=== PATIENT | male | born 1940 | race Caucasian/White ===

== ENCOUNTER 2017-12-29 09:13 | Day surgery (SDC) | payer MEDICARE, OTHER ==
[~2017-12-29] VITALS: Ht 172.7 cm; Wt 81.8 kg
[2017-12-29 09:48] VITALS: BP 111/53
[2017-12-29] MEDS ORDERED: water pill (10:08)
[2017-12-29] MEDS ORDERED: IBUP-1985 PO (10:08)
[2017-12-29] MEDS ORDERED: HYDR-565 PO (10:09)
[2017-12-29] MEDS ORDERED: bp med (10:09)
[2017-12-29] MEDS ORDERED: stool softener (10:10)
[2017-12-29] MEDS ORDERED: fentaNYL/PF 50MCG/1 ML 2ML syringe ONE (10:22)
[2017-12-29] MEDS ORDERED: MIDAZolam 5mg/5ml vial ONE (10:22)
[2017-12-29 11:00] VITALS: BP 100/50
[2017-12-29 11:08] VITALS: BP 111/60
[2017-12-29 11:18] VITALS: BP 111/56
[2017-12-29 11:28] VITALS: BP 115/56
== END 2017-12-29 11:35 | disposition home or self-care (01) ==
LOC: GI LAB 09:13
PROVIDERS: ATTEND Internal Medicine Gastroenterology
DX: Z09 Encounter for follow-up examination after completed treatment for conditions other than malignant neoplasm (principal); D12.0 Benign neoplasm of cecum; K63.5 Polyp of colon; K57.30 Diverticulosis of large intestine without perforation or abscess without bleeding; K55.21 Angiodysplasia of colon with hemorrhage; I10 Essential (primary) hypertension; J44.9 Chronic obstructive pulmonary disease, unspecified; F15.21 Other stimulant dependence, in remission; G89.29 Other chronic pain; Z86.010 Personal history of colon polyps; Z79.891 Long term (current) use of opiate analgesic; Z79.1 Long term (current) use of non-steroidal anti-inflammatories (NSAID); Z87.891 Personal history of nicotine dependence; Z87.442 Personal history of urinary calculi; Z85.46 Personal history of malignant neoplasm of prostate; Z88.5 Allergy status to narcotic agent; Z79.899 Other long term (current) drug therapy; Z98.890 Other specified postprocedural states
CPT/HCPCS: 45380; 45382; 45385; 99153; G0500; J2250; J3010; J7030; 88305; A4620

== ENCOUNTER 2020-03-07 09:03 | Inpatient (IN) | payer MEDICARE, OTHER ==
[2020-02-29 15:46] LABS: CLARITY,URINE CLEAR (Clear); COLOR,URINE YELLOW (Yellow); GLUCOSE, URINE NEGATIVE (Neg); KETONES,URINE NEGATIVE (Neg); LEUKOCYTE ESTERASE ,URINE NEGATIVE (Neg); NITRITES, URINE NEGATIVE (Neg); OCCULT BLOOD,URINE NEGATIVE (Neg); PH,URINE 5.5 (4.8-8.0); PROTEIN,URINE NEGATIVE (Neg); UROBILINOGEN,URINE 0.2 E.U/dL (0.2-1.0)
[2020-02-29 15:47] LABS: UA COLLECTION TYPE NON-SPECIFIED
[2020-02-29 15:55] LABS: BASOPHILS # (AUTO) 0.1 X10'3 (0-0.2); BASOPHILS % (AUTO) 1.5 % (0-1); EOSINOPHILS # (AUTO) 0.3 X10'3 (0-0.9); EOSINOPHILS % (AUTO) 4.4 % (0-6); LYMPHOCYTES % (AUTO) 13.7 % (21-51); MEAN CORPUSCULAR VOLUME 94.1 FL (78-98); MEAN PLATELET VOLUME 8.4 FL (7.4-10.4); MONOCYTES # (AUTO) 0.8 X10'3 (0-0.9); MONOCYTES % (AUTO) 10.8 % (2-12); NEUTROPHILS # (AUTO) 4.9 X10'3 (1.8-7.7); NEUTROPHILS % (AUTO) 69.6 % (42-75); PRE OP HEMOGLOBIN 14.9 g/dL (14.0-17.9); PRE OP PLATELET COUNT 276 X10'3 (140-440); RED BLOOD COUNT 4.67 X10'6 (4.70-6.10); RED CELL DISTRIBUTION WIDTH 14.2 % (11.5-14.5)
[2020-02-29 16:03] LABS: ALBUMIN 4.2 G/DL (3.4-5.0); ALBUMIN/GLOBULIN RATIO 1.2 (1.1-1.5); ALKALINE PHOSPHATASE 91 IU/L (46-116); BLOOD UREA NITROGEN 15 MG/DL (7-18); BUN/CREATININE RATIO 17.6 (5.4-32.0); CALCIUM 9.6 MG/DL (8.5-10.1); CHLORIDE 104 MMOL/L (99-107); CREATININE 0.85 MG/DL (0.60-1.10); PRE OP ALT 48 U/L (30-65); PRE OP ANION GAP 6 (8-16); PRE OP AST 22 U/L (10-37); PRE OP BILIRUB, TOTAL 0.3 MG/DL (0.0-1.0); PRE OP GLUCOSE 95 MG/DL (70-104); PRE OP POTASSIUM 3.7 MMOL/L (3.4-5.1); PRE OP SODIUM 139 MMOL/L (135-145); TOTAL CARBON DIOXIDE 29.2 MMOL/L (24-32); TOTAL PROTEIN 7.7 G/DL (6.4-8.2); eGFR 87 ML/MIN
[~2020-03-07] VITALS: Ht 172.7 cm; Wt 81.8 kg
[2020-03-07] VITALS (10 sets, daily range): BP systolic 122–139; BP diastolic 51–71
[~2020-03-07 09:03] MED LIST: AMLO-708 PO; ATOR20TA66 PO; BUPIVACAINE liposomal/PF 13.3 MG/ML vial IM ONE; BUPIVAcaine/PF 2.5 mg/ml (0.25%) 30ml vial ONE; BUPIVAcaine/PF 2.5mg/ml (0.25%) 10ml vial ONE; CELE200C PO; CLON0.5T23 PO; DOCU-21 PO; HYDR-4353 PO; LIDOcaine 1% (10mg/ml) 2ml vial ONE; LISI1TAB51 PO; albuterol 2.5 MG/3 ML nebule NEB ONE; cefazolin/dext.iso 2gm/50ml 50 ML IV ONE; famotidine 20mg tablet PO ONE; ringers solution, lacted 1,000 ML IV SCH
[2020-03-07] MEDS ORDERED: ringers solution, lacted 1,000 ML IV SCH (12:36)
[2020-03-07] MEDS ORDERED: fentaNYL/PF 50MCG/1 ML 2ML syringe ONE ×3 (12:39→16:32)
[2020-03-07] MEDS ORDERED: midazolam 2 mg/2 ml injection ONE (12:39)
[2020-03-07] MEDS ORDERED: hydrALAZINE 20mg/ml inj. IV PRN (12:40)
[2020-03-07] MEDS ORDERED: propofol inj 20 ML IV ONE (12:40)
[2020-03-07] MEDS ORDERED: fentaNYL/PF 50MCG/1 ML 2ML syringe IV PRN ×2 (12:40)
[2020-03-07] MEDS ORDERED: HYDROmorphone inj. 0.5 MG/0.5 ML DISP.SYRIN IV PRN ×2 (12:40)
[2020-03-07] MEDS ORDERED: LIDOcaine 2% (20mg/ml) 5ml vial ONE (12:40)
[2020-03-07] MEDS ORDERED: rocuronium 10mg/ml inj IV ONE ×2 (12:40→14:50)
[2020-03-07] MEDS ORDERED: ondansetron/PF 4mg/2ml inj IV PRN ×2 (12:40→17:05)
[2020-03-07] MEDS ORDERED: labetalol 20mg/4ml (5mg/ml) syringe IV PRN (12:40)
[2020-03-07] MEDS ORDERED: ondansetron/PF 4mg/2ml inj ONE (12:40)
[2020-03-07] MEDS ORDERED: furosemide 40mg/4ml inj ONE (12:46)
[2020-03-07] MEDS ORDERED: sevoflurane 250ml liquid IH ONE (12:46)
[2020-03-07] MEDS ORDERED: dexamethasone sod phosphate 4mg/ml inj. ONE (13:38)
[2020-03-07] MEDS ORDERED: ePHEDrine 50MG/ML INJ. ONE (14:34)
[2020-03-07] MEDS ORDERED: albumin (Human) 5% 250ml 250 ML IV ONE (15:27)
[2020-03-07] MEDS ORDERED: BUPIVACAINE liposomal/PF 13.3 MG/ML vial IM ONE (15:41)
[2020-03-07] MEDS ORDERED: BUPIVAcaine/PF 2.5mg/ml (0.25%) 10ml vial ONE (15:41)
[2020-03-07] MEDS ORDERED: BUPIVAcaine/PF 2.5 mg/ml (0.25%) 30ml vial ONE (15:41)
[2020-03-07] MEDS ORDERED: neostigmine methylsulfate 1 MG/ML 10ml vial ONE (16:13)
[2020-03-07] MEDS ORDERED: glycopyrrolate 0.2mg/ml inj ONE (16:13)
--- NOTE | 2020-03-07 16:46 | NUR ---
Received from OR via , accompanied by Anesthesiologist DR SALGADO and report given by Anesthesiolgist. AWAKENS TO VOICE. VITALS STABLE. DRESSING DI. STATES PAIN TO LT LATERRAL CHEST. WILL MEDICATE. CHEST TUBE TO LOW SUCTION. KRISHNAN WITH CLEAR URINE.
[2020-03-07] MEDS ORDERED: morphine 4 MG/ML inj SYRINge IV PRN ×2 (17:05)
[2020-03-07] MEDS ORDERED: metoclopramide 5 mg/ml inj IV PRN (17:05)
[2020-03-07] MEDS ORDERED: albuterol 2.5 MG/3 ML nebule NEB PRN (17:05)
[2020-03-07] MEDS ORDERED: naloxone 0.4 mg/ml inj IV PRN (17:05)
[2020-03-07 17:11] LABS: ABG BASE EXCESS -3.2 mmol/L (-2.0-2.0); ABG HCO3 23.1 mmol/L (22.0-26.0); ABG PCO2 (T) 46.3 mmHg (35.0-48.0); ABG PO2 (T) 117.8 mmHg (75.0-100.0); FCOHb 0.2 % (0.0-3.9); FLOW 9 L/min; FMetHb 0.5 % (0.0-1.5); FO2Hb 97.3 % (94-97)
--- NOTE | 2020-03-07 17:36 | NUR ---
Report called to receiving nurse. Transferred via [facility]ong[facility] . Special Issues communicated to receiving nurse. AWAKE AND ORIENTED. VITALS STABLE. DRESSINGS DI. STATES PAIN IMPROVING. TO [facility] 316 AT THIS TIME.
--- NOTE | 2020-03-07 17:45 | NUR ---
received report via Sara COLEMAN ,from [facility],[employer]PERVISOR,received patient into room 316,assessment complete,oriented to surroundings,pt drowsy,responds appropriately c/o pain 7-8 with deep breaths only,chest tube to suction,scant airleak noted ,no drainage at this time, post op V/S started,o2/2l/nc. f/c patnt draining adequates amounts of clear yellow urine,call diamond in hand, side rails up
--- NOTE | 2020-03-07 18:30 | NUR ---
Patient in room MED 316. I have received report from Ariana, and had the opportunity to ask questions and assume patient care. Addendum: 03/08/20 at 0605 by Julien Ortega RN Received report from Gary, not for Ariana.
--- NOTE | 2020-03-07 18:30 | NUR ---
Problems reprioritized. Patient report given, questions answered & plan of care reviewed with KAYODE byers.
[2020-03-07] MEDS: docusate sod 100mg capsule PO SCH (19:44)
[2020-03-07] MEDS: HYDROcodone/acetaminophen 10/325mg tab PO PRN (19:46)
[2020-03-07] MEDS: potassium Cl 20mEq in D5-NS 1,000 ML IV SCH (19:46)
[2020-03-07] MEDS: gabapentin 300mg capsule PO SCH (19:46)
[2020-03-07] MEDS ORDERED: clonazePAM 0.5mg tablet PO PRN (21:00)
[2020-03-08] MEDS: ceFAZolin inj. 1,000 MG in dextrose 5%-water 50ml 50 ML IV SCH ×2 (00:03→08:00)
[2020-03-08] MEDS: HYDROcodone/acetaminophen 10/325mg tab PO PRN ×3 (00:04→14:18)
[2020-03-08 02:00] VITALS: BP 117/45
[2020-03-08 05:32] LABS: BASOPHILS % (AUTO) 0.3 % (0-1); EOSINOPHILS % (AUTO) 0 % (0-6); HEMATOCRIT 38.3 % (42.0-52.0); HEMOGLOBIN 12.7 g/dl (14.0-17.9); LYMPHOCYTES # (AUTO) 0.8 X10'3 (1.1-4.8); LYMPHOCYTES % (AUTO) 6.1 % (21-51); MEAN CORPUSCULAR HEMOGLOBIN 31.1 PG (27.0-31.0); MEAN CORPUSCULAR HGB CONC 33.1 g/dL (33.0-36.5); MEAN CORPUSCULAR VOLUME 93.9 FL (78-98); MEAN PLATELET VOLUME 8.8 FL (7.4-10.4); MONOCYTES # (AUTO) 1.2 X10'3 (0-0.9); MONOCYTES % (AUTO) 9.4 % (2-12); NEUTROPHILS # (AUTO) 10.8 X10'3 (1.8-7.7); NEUTROPHILS % (AUTO) 84.2 % (42-75); PLATELET COUNT 227 X10'3 (140-440); RED BLOOD COUNT 4.07 X10'6 (4.70-6.10); RED CELL DISTRIBUTION WIDTH 13.9 % (11.5-14.5); WHITE BLOOD COUNT 12.9 X10'3 (4.5-11.0)
[2020-03-08 05:35] LABS: ALANINE AMINOTRANSFERASE 34 U/L (12-78); ALBUMIN 3.2 G/DL (3.4-5.0); ALBUMIN/GLOBULIN RATIO 1.1 (1.1-1.5); ALKALINE PHOSPHATASE 61 IU/L (46-116); ANION GAP 9 (8-16); ASPARTATE AMINO TRANSFERASE 18 U/L (10-37); BILIRUBIN,TOTAL 0.3 MG/DL (0.1-1.0); BLOOD UREA NITROGEN 7 MG/DL (7-18); CALCIUM 8.7 MG/DL (8.5-10.1); CHLORIDE 106 MMOL/L (99-107); CREATININE 0.87 MG/DL (0.60-1.10); GLUCOSE 138 MG/DL (70-104); MAGNESIUM 1.7 MG/DL (1.5-2.4); POTASSIUM 4.3 MMOL/L (3.5-5.1); SODIUM 142 MMOL/L (135-145); TOTAL CARBON DIOXIDE 26.7 MMOL/L (24-32); eGFR 85 ML/MIN
[2020-03-08] MEDS: potassium Cl 20mEq in D5-NS 1,000 ML IV SCH ×2 (05:35→09:30)
[2020-03-08 06:00] VITALS: BP 114/48
--- NOTE | 2020-03-08 06:20 | NUR ---
Patient in room MED 316. I have received report from red Victoria and had the opportunity to ask questions and assume patient care.
--- NOTE | 2020-03-08 06:28 | NUR ---
Problems reprioritized. Patient report given to Gary, questions answered & plan of care reviewed with .
[2020-03-08] MEDS: docusate sod 100mg capsule PO SCH ×2 (08:00→19:41)
[2020-03-08] MEDS ORDERED: docusate sod 100mg capsule PO SCH (08:00)
[2020-03-08] MEDS: gabapentin 300mg capsule PO SCH ×2 (09:07→19:41)
[2020-03-08] MEDS: celeCOXIB 100mg capsule PO SCH (09:08)
[2020-03-08 10:00] VITALS: BP 112/50
[2020-03-08 14:00] VITALS: BP 122/58
--- NOTE | 2020-03-08 17:00 | NUR ---
f/c removed without problem,per order from dr. swann
[2020-03-08 18:00] VITALS: BP 111/52
--- NOTE | 2020-03-08 18:11 | NUR ---
Problems reprioritized. Patient report given, questions answered & plan of care reviewed with red byers.
--- NOTE | 2020-03-08 18:15 | NUR ---
Patient in room MED 316. I have received report from Gary, and had the opportunity to ask questions and assume patient care.
[2020-03-08 22:00] VITALS: BP 126/54
[2020-03-09] MEDS: HYDROcodone/acetaminophen 10/325mg tab PO PRN ×3 (01:53→14:24)
[2020-03-09 02:00] VITALS: BP 140/65
[2020-03-09 06:00] VITALS: BP 139/61
--- NOTE | 2020-03-09 06:22 | NUR ---
Problems reprioritized. Patient report given Pat-RN, questions answered & plan of care reviewed with .
[2020-03-09] MEDS: docusate sod 100mg capsule PO SCH (08:02)
[2020-03-09] MEDS: celeCOXIB 100mg capsule PO SCH (08:02)
[2020-03-09] MEDS: gabapentin 300mg capsule PO SCH (08:03)
[2020-03-09 14:00] VITALS: BP 140/96
== END 2020-03-09 18:20 | disposition home or self-care (01) | DRG 165 ==
LOC: PAS 09:03 → EDSTATUS 11:15 → MED 3N 17:05
PROVIDERS: ADMIT Surgery; ATTEND Surgery
PROC: 8E0W4CZ Robotic Assisted Procedure of Trunk Region, Percutaneous Endoscopic Approach (ICD-10-PCS; 2020-03-07)
PROC: 0W9B30Z Drainage of Left Pleural Cavity with Drainage Device, Percutaneous Approach (ICD-10-PCS; 2020-03-07)
PROC: 0BTJ4ZZ Resection of Left Lower Lung Lobe, Percutaneous Endoscopic Approach (ICD-10-PCS; principal; 2020-03-07 12:46)
DX: C34.32 Malignant neoplasm of lower lobe, left bronchus or lung (principal); Z78.9 Other specified health status; Z20.828 Contact with and (suspected) exposure to other viral communicable diseases
CPT/HCPCS: 36415; 36600; 71045; 71046; 80053; 81003; 82803; 82948; 83735; 85018; 85025; 85610; 85730; 86885; 86900; 86901; 87081; 87635; 88305; 88309; 93005; 97110; 97116; 97161; 97530; A4618; A6258; A6402; A6449; A7000; A7048; C1758; C9250; C9290; G0378; J0690; J1100; J1170; J1940; J2001; J2250; J2405; J2704; J2710; J3010; J3480; J3490; J7040; J7060; J7120; P9045

== ENCOUNTER 2021-02-10 14:17 | Emergency (ER) | payer MEDICARE, OTHER ==
[~2021-02-10] VITALS: Ht 172.7 cm; Wt 81.8 kg
[~2021-02-10 14:17] MED LIST changes: -AMLO-708 PO; -ATOR20TA66 PO; -BUPIVACAINE liposomal/PF 13.3 MG/ML vial IM ONE; -BUPIVAcaine/PF 2.5 mg/ml (0.25%) 30ml vial ONE; -BUPIVAcaine/PF 2.5mg/ml (0.25%) 10ml vial ONE; -HYDR-4353 PO; -LIDOcaine 1% (10mg/ml) 2ml vial ONE; -LISI1TAB51 PO; -albuterol 2.5 MG/3 ML nebule NEB ONE; -cefazolin/dext.iso 2gm/50ml 50 ML IV ONE; -famotidine 20mg tablet PO ONE; -ringers solution, lacted 1,000 ML IV SCH
[2021-02-10] MEDS ORDERED: bacitracin 15gm ointment TP ONE (14:25)
[2021-02-10] MEDS ORDERED: LIDOcaine 1% W/epiNEPHrine 1:200,000 10ml vial IJ ONE (14:25)
[2021-02-10 20:04] VITALS: BP 129/70
== END 2021-02-10 19:53 | disposition home or self-care (01) ==
LOC: ER 14:18
DX: S81.011A Laceration without foreign body, right knee, initial encounter (principal); I10 Essential (primary) hypertension; J44.9 Chronic obstructive pulmonary disease, unspecified; G89.29 Other chronic pain; Z85.9 Personal history of malignant neoplasm, unspecified; Z79.899 Other long term (current) drug therapy; Z88.6 Allergy status to analgesic agent; W31.2XXA Contact with powered woodworking and forming machines, initial encounter; Y93.89 Activity, other specified; Y92.89 Other specified places as the place of occurrence of the external cause; Y99.8 Other external cause status
CPT/HCPCS: 12004; 73564; 99283